=== PATIENT | female | born 1995 | race Caucasian/White ===

== ENCOUNTER → 2023-06-22 | Outpatient (CLI) | payer OTHER ==
[~2023-06-22] VITALS: Ht 157.5 cm; Wt 106.0 kg
[2023-06-22] VITALS (17 sets, daily range): BP systolic 93–138; BP diastolic 51–90; PULSE 48–86; TEMP 98.7
[~2023-06-22] MED LIST: Gelatin Sponge,Absorbable Size 12-7 SPONGE TP SCH; PRENATAL FORMU1 EAC3 PO; fentaNYL 50 MCG/ML 2 ML VIAL IV SCH
[2023-06-22 08:59] LABS: INR 1.1 (0.8-3.0); PROTHROMBIN TIME 11.7 SECONDS (9.7-12.8)
--- NOTE | 2023-06-22 09:40 | NUR ---
Pt to ct per wheelchair. Pt up on table in supine position. Monitors and O2 on.
--- NOTE | 2023-06-22 09:50 | NUR ---
Dr Vallejo in to talk with pt.
--- NOTE | 2023-06-22 10:05 | NUR ---
Specimen obtained and placed in formalin by Dr Vallejo. Specimen labeled.
== END ==
LOC: COL.RAD 07:36
PROVIDERS: Radiology Diagnostic Radiology
DX: K76.0 Fatty (change of) liver, not elsewhere classified (principal)
CPT/HCPCS: J3010